=== PATIENT | female | born 2000 | race Caucasian/White ===

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

== ENCOUNTER 2022-08-17 11:03 | Emergency (ER) | payer BC ==
[2022-08-17] MEDS ORDERED: HYDROmorphone 0.5 MG/0.5 ML Syringe IVPUSH ONE (12:20)
[2022-08-17] MEDS ORDERED: Ondansetron 4 MG/2 ML SDV IVPUSH ONE (12:21)
[2022-08-17] MEDS ORDERED: Orphenadrine 100 MG Tab.ER PO STA (12:25)
[2022-08-17 14:50] VITALS: BP 119/69; PULSE 76
== END 2022-08-17 14:40 | disposition home or self-care (01) ==
LOC: JD.ED 11:03
DX: S99.911A Unspecified injury of right ankle, initial encounter (principal); F17.210 Nicotine dependence, cigarettes, uncomplicated; Z88.0 Allergy status to penicillin; Z88.1 Allergy status to other antibiotic agents; Z79.899 Other long term (current) drug therapy; Z86.16 Personal history of COVID-19
CPT/HCPCS: 36415; 73610; 80048; 83735; 96374; 96375; 99283; A9270; J1170; J2405

== ENCOUNTER 2023-04-12 00:51 | Emergency (ER) | payer BC ==
[2023-04-12] MEDS ORDERED: Metoclopramide 10 MG/2 ML SDV IVPUSH STA (01:28)
[2023-04-12] MEDS ORDERED: Sodium Chloride 0.9% 1,000 ML IV ONE (01:28)
[2023-04-12 01:46] LABS: BASOPHILS ABSOLUTE AUTO 0.02 K/mm3 (0.01-0.08); BASOPHILS PERCENT AUTO 0.2 % (0.1-1.2); EOSINOPHILS ABSOLUTE AUTO 0.06 K/mm3 (0.04-0.36); EOSINOPHILS PERCENT AUTO 0.5 (0.7-5.8); HEMATOCRIT 38.6 % (34.1-44.9); HEMOGLOBIN 13.4 gm/dl (11.2-15.7); IMMATURE GRAN ABSOLUTE AUTO 0.02 K/mm3 (0.00-0.10); IMMATURE GRAN PERCENT AUTO 0.2 % (<=1.0); LYMPHOCYTES ABSOLUTE AUTO 2.73 K/mm3 (1.18-3.74); LYMPHOCYTES PERCENT AUTO 20.9 % (19.3-51.7); MEAN CORPUSCULAR HEMOGLOBIN 32.1 pg (25.6-32.2); MEAN CORPUSCULAR HGB CONC 34.7 g/dl (32.2-35.5); MEAN CORPUSCULAR VOLUME 92.3 fl (79.4-94.8); MEAN PLATELET VOLUME 10.9 fl (9.4-12.3); MONOCYTES PERCENT AUTO 6.1 % (4.7-12.5); NEUTROPHILS ABSOLUTE AUTO 9.45 K/mm3 (1.56-6.13); NEUTROPHILS PERCENT AUTO 72.1 % (34.0-71.1); PLATELET COUNT,PLT 270 K/mm3 (182-369); RED BLOOD CELL COUNT 4.18 M/mm3 (3.98-5.22); WHITE BLOOD CELL COUNT,WBC 13.08 K/mm3 (3.98-10.04)
[2023-04-12 02:28] LABS: A/G RATIO 1.3 (1-2); ANION GAP 11.5 (5-15); BILIRUBIN TOTAL 0.7 mg/dL (0.2-1.0); CALCIUM 9.3 mg/dL (8.5-10.1); CREATININE 0.7 mg/dL (0.55-1.02); EST CRCL DRUG DOSING (CG) 121.89 mL/min; MAGNESIUM 1.4 mg/dL (1.8-2.4); POTASSIUM,K 3.5 mEq/L (3.5-5.1); PROTEIN TOTAL,TP 7.1 g/dl (6.4-8.2)
[2023-04-12 03:54] VITALS: BP 112/84; PULSE 58
== END 2023-04-12 03:32 | disposition home or self-care (01) ==
LOC: JD.ED 00:51
DX: O21.9 Vomiting of pregnancy, unspecified (principal); O99.281 Endocrine, nutritional and metabolic diseases complicating pregnancy, first trimester; E83.42 Hypomagnesemia; Z3A.09 9 weeks gestation of pregnancy
CPT/HCPCS: 36415; 80053; 83735; 84702; 85025; 96361; 96374; 99284; J2765; J7030

== ENCOUNTER 2023-10-31 08:50 | Inpatient (IN) | payer BC ==
[~2023-10-31 08:50] MED LIST changes: -Clindamycin Phosphate 900 MG in Sodium Chloride 0.9% 100 ML IV SCH; -Dexamethasone 4 MG/ML 5 ML MDV ONE; -Ketorolac 30 MG/ML SDV ONE; -Lactated Ringers 1,000 ML IV SCH; -Lactated Ringers 1,000 ML ONE; -Lidocaine 1% PF 2 ML SDV ONE; -Lidocaine 1%/Sod Bicarbonate in NS 8.4% 1 ML Syringe IDERM PRN; -Midazolam 1 MG/ML 2 ML SDV ONE; -Ondansetron 4 MG/2 ML SDV ONE; +Oxytocin 10 Units/1 ML SDV ONE; -Propofol 200 MG/20 ML SDV ONE; -Sodium Chloride 0.9% 10 ML Syringe FLUSH PRN; -fentaNYL 100 MCG/2 ML SDV ONE
[2023-10-31] MEDS ORDERED: Lidocaine 1% 50 ML MDV INJECT PRN (09:34)
[2023-10-31] MEDS ORDERED: Nalbuphine HCl 10 MG/ 1ML Amp IVPUSH PRN (09:34)
[2023-10-31] MEDS ORDERED: Lactated Ringers 1,000 ML IV SCH (09:45)
[2023-10-31] MEDS ORDERED: Oxytocin/Lactated Ringers 30 UNIT/500 ML BAG IV SCH ×2 (09:45)
[2023-10-31 09:56] LABS: BASOPHILS ABSOLUTE AUTO 0.1 K/mm3 (0.0-0.2); BASOPHILS PERCENT AUTO 0.3 % (0.0-1.0); HEMATOCRIT 34.9 % (37.0-47.0); HEMOGLOBIN 12.1 gm/dl (12.0-16.0); IMMATURE GRAN ABSOLUTE AUTO 0.09 K/mm3 (0.00-0.05); IMMATURE GRAN PERCENT AUTO 0.5 % (0.0-0.4); LYMPHOCYTES ABSOLUTE AUTO 2.1 K/mm3 (1.0-4.8); LYMPHOCYTES PERCENT AUTO 10.7 % (24.0-44.0); MEAN CORPUSCULAR HEMOGLOBIN 32.4 pg (28.0-32.0); MEAN CORPUSCULAR HGB CONC 34.7 g/dl (32.0-36.0); MEAN CORPUSCULAR VOLUME 93.3 fl (83.0-99.0); MEAN PLATELET VOLUME 11.9 fl (9.4-12.3); MONOCYTES PERCENT AUTO 4.9 % (0.0-8.0); NEUTROPHILS ABSOLUTE AUTO 16.5 K/mm3 (1.8-7.7); NEUTROPHILS PERCENT AUTO 83.6 % (41.0-71.0); PLATELET COUNT,PLT 182 K/mm3 (150-400); RED BLOOD CELL COUNT 3.74 M/mm3 (4.10-5.30); WHITE BLOOD CELL COUNT,WBC 19.67 K/mm3 (3.9-11.3)
[2023-10-31 10:22] LABS: CREATININE 0.6 mg/dL (0.55-1.02); EST CRCL DRUG DOSING (CG) 138.85 mL/min; URIC ACID 5.1 mg/dL (2.6-6.0)
[2023-10-31 10:46] LABS: CREATININE,URINE RAND 38.8 mg/dL (30.0-125.0); PROTEIN,URINE RANDOM 10.4 mg/dL (0.0-11.8)
[2023-10-31] MEDS ORDERED: diphenhydrAMINE 50 MG/ML SDV IVPUSH PRN (10:59)
[2023-10-31] MEDS ORDERED: fentaNYL 100 MCG/2 ML SDV EPIDUR PRN (10:59)
[2023-10-31] MEDS ORDERED: Bupivacaine/fentaNYL/NS 100 ML Bag EPIDUR PRN (10:59)
[2023-10-31] MEDS ORDERED: ePHEDrine 50 MG/ML SDV IVPUSH PRN (10:59)
[2023-10-31] MEDS ORDERED: Tranexamic Acid 1,000 MG/10 ML Vial ONE (13:24)
[2023-10-31] MEDS ORDERED: Benzocaine/Menthol 20%-0.5% Spray 78 GM Cannister TOP PRN (13:58)
[2023-10-31] MEDS ORDERED: Acetaminophen 325 MG Tab PO PRN (13:58)
[2023-10-31] MEDS ORDERED: Witch Hazel Medicated Pads 40/Jar TOP PRN (13:58)
[2023-10-31] MEDS: Ibuprofen 600 MG Tab PO PRN (18:45)
[2023-10-31] MEDS ORDERED: Ropivacaine 0.2% PF 2 MG/ML 20 ML SDV ONE (19:00)
[2023-11-01 20:06] VITALS: BP 131/88; PULSE 90
[2023-11-01] MEDS: Ibuprofen 600 MG Tab PO PRN (22:42)
== END 2023-11-02 12:45 | disposition home or self-care (01) | DRG 560 ==
LOC: JD.OBCHECK 08:50 → JD.OB 08:57 → OBSVTOIN 09:39 → JD.OBCHECK 09:39 → JD.OB 13:42
PROVIDERS: ADMIT Obstetrics & Gynecology; ATTEND Obstetrics & Gynecology
PROC: 10E0XZZ Delivery of Products of Conception, External Approach (ICD-10-PCS; principal; 2023-10-31)
PROC: 10907ZC Drainage of Amniotic Fluid, Therapeutic from Products of Conception, Via Natural or Artificial Opening (ICD-10-PCS; 2023-10-31)
PROC: 3E0R3BZ Introduction of Anesthetic Agent into Spinal Canal, Percutaneous Approach (ICD-10-PCS; 2023-10-31)
PROC: 00HU33Z Insertion of Infusion Device into Spinal Canal, Percutaneous Approach (ICD-10-PCS; 2023-10-31)
PROC: 0HQ9XZZ Repair Perineum Skin, External Approach (ICD-10-PCS; 2023-10-31)
DX: O13.4 Gestational [pregnancy-induced] hypertension without significant proteinuria, complicating childbirth (principal); Z88.1 Allergy status to other antibiotic agents; Z88.0 Allergy status to penicillin; Z87.891 Personal history of nicotine dependence; Z37.0 Single live birth; O70.0 First degree perineal laceration during delivery; Z3A.37 37 weeks gestation of pregnancy; Z86.16 Personal history of COVID-19
CPT/HCPCS: 36415; 51701; 59025; 59409; 82565; 82570; 83615; 84156; 84450; 84460; 84520; 84550; 85025; 86592; 86850; 86900; 86901; A9270-GY; J2590; J2795; J3010; J3490; J7120

== ENCOUNTER 2025-08-16 02:24 | Emergency (ER) | payer SELFPAY ==
[2025-08-16 02:50] VITALS: BP 140/94; PULSE 95
== END 2025-08-16 03:36 | disposition home or self-care (01) ==
LOC: JD.ED 02:24
DX: S01.01XA Laceration without foreign body of scalp, initial encounter (principal); S30.11XA Contusion of abdominal wall, initial encounter; S29.8XXA Other specified injuries of thorax, initial encounter; F17.200 Nicotine dependence, unspecified, uncomplicated; Z88.0 Allergy status to penicillin; Z88.8 Allergy status to other drugs, medicaments and biological substances; Z79.899 Other long term (current) drug therapy; Z86.16 Personal history of COVID-19; W06.XXXA Fall from bed, initial encounter
CPT/HCPCS: 12001; 99282; J2003; 99283